=== PATIENT | female | born 1995 | race Caucasian/White ===

== ENCOUNTER 2017-05-22 16:17 | Emergency (ER) | payer OTHER ==
[2017-05-22 16:46] VITALS: BP 131/75
--- NOTE | 2017-05-22 17:08 | UC ---
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 SHORTLY AFTER LEFT SIDE OF FACE AND LEFT THUMP FELT JAYLAN AND NUMB, AND HEARING LEFT EAR WAS DIMINISHED. RADIATING PAIN INTO PT'S HEAD WITH ROTATION." -she states the pain felt like a "hot knife piercing into my neck". pain was so severe that it dropped her to her knees. pain is minimal now at 1/10 but has tingling into left thumb and 1st digit. -left cheek is tingly. denies slurred speech or difficulty with gait or vision. -pain is left superior neck/base of skull. - History of Current Complaint Chief Complaint: UCGeneralIllness Stated Complaint: L SIDE NECK/FACE COMPLAINT Time Seen by Provider: 05/22/17 16:54 Hx Last Menstrual Period: 04/27/17 Pain Intensity: 1 - Allergy/Home Medications Allergies/Adverse Reactions: Allergies Allergy/AdvReac Type Severity Reaction Status Date / Time No Known Allergies Allergy Verified 05/22/17 16:35 PMH/Surg Hx/FS Hx/Imm Hx Previously Healthy: Yes - Surgical History Surgical History: None - Family History Known Family History: Negative: Respiratory Disease - Social History Alcohol Use: Rare Substance Use Type: None Smoking Status (MU): Never Smoked Tobacco Review of Systems Constitutional: Negative Skin: Negative Eyes: Negative ENT: Negative Respiratory: Negative Cardiovascular: Negative Gastrointestinal: Negative Genitourinary: Negative Motor: Negative Neurovascular: Negative Musculoskeletal: Negative Neurological: Paresthesia Psychological: Negative Is Patient Immunocompromised?: No All Other Systems Reviewed And Are Negative: Yes Physical Exam Triage Information Reviewed: Yes Appearance: Well-Appearing, No Pain Distress Vital Signs: Initial Vital Signs Temp 99.3 F 05/22/17 16:36 Pulse 116 05/22/17 16:36 Resp 16 05/22/17 16:36 BP 131/75 05/22/17 16:36 Pulse Ox 100 05/22/17 16:36 Vital Signs Reviewed: Yes Eye Exam: Normal ENT: Positive: Pharynx normal, TMs normal. Negative: TM bulging, TM dull, TM red Neck exam: Normal Neck: Positive: Supple, Nontender, No Lymphadenopathy. Negative: Nuchal Rigidity, Tenderness @ Respiratory Exam: Normal Respiratory: Positive: Lungs clear, Normal breath sounds, No respiratory distress, No accessory muscle use Cardiovascular Exam: Normal Cardiovascular: Positive: RRR, No Murmur, Pulses Normal Musculoskeletal Exam: Normal Musculoskeletal: Positive: Strength Intact Neurological Exam: Normal Neurological: Positive: Alert, Muscle Tone Normal, Other: - Cr III-Xii intact, strength 5/5 UE & LE b/l. no pronator drift, negative rhomberg. tandem gait is nml. decreased sensation to left cheek and left thumb. Psychological Exam: Normal Skin Exam: Normal Course/Dx - Course Course Of Treatment: Needs ER evaluation immediately for r/o dissection. Unable to offer IV contrast here. She agrees to go to closest ER for evaluation which is [facility]. she declines ambulance d/t cost. she verbalizes understanding and risk of dissection and stroke and recommendation of ambulance. -soft collar applied. -I spoke with Dr Mary Lou Arrington @ [facility] who accepts pt and agrees accepting pt. I did relay to pt that if there is abnormality that she would require trx to a hospital with neuro available. - Differential Dx - Multi-Symptom Differential Diagnoses: Other - m/s strain, arterial dissection. Provider Diagnoses: neck pain, left facial and left arm paresthesia. - Physician Notifications Discussed Patient Care With: Dr Mary Lou Arrington at 17:10 Discharge - Sign-Out/Discharge Documenting (check all that apply): Discharge - Discharge Plan Condition: Fair Disposition: TRANS HIGHER LVL OF CARE FAC Referrals: No Primary Care Phys,NOPCP [Primary Care Provider] - Additional Instructions: transfer to [facility] immediately. declined ambulance. You should go directly to ER, do not stop anywhere on your way. - Billing Disposition and Condition Condition: FAIR Disposition: EMTALA
== END 2017-05-22 17:23 | disposition short-term general hospital (02) ==
LOC: UCCORT 16:17
DX: M54.2 Cervicalgia (principal); R20.2 Paresthesia of skin
CPT/HCPCS: 99213; G0463